=== PATIENT | male | born 1960 ===

== ENCOUNTER 2020-03-22 06:17 | Day surgery (SDC) | payer OTHER ==
[2020-03-18 09:27] LABS: Hematocrit 43.2 % (35.5-45.6); Hemoglobin 14.6 gm/dl (11.8-15.2); Mean Corpuscular HGB Conc 34 % (32-34); Mean Corpuscular Volume 94 fl (84-94); Platelet Count 225 K/mm3 (140-440); Red Blood Count 4.61 M/mm3 (3.65-5.03); Red Cell Distribution Width 12.7 % (13.2-15.2)
[2020-03-18 09:39] LABS: BUN/Creatinine Ratio 29; Blood Urea Nitrogen 23 mg/dL (9-20); Calcium 9.2 mg/dL (8.4-10.2); Hemolysis Index 13
--- NOTE | 2020-03-21 14:30 | Short Stay Summary ---
Short Stay Documentation Date of service: 03/22/20 - History H&P: obtained from office - Allergies and Medications Current Medications: Allergies Sulfa (Sulfonamide Antibiotics) Adverse Reaction (Intermediate, Verified 03/09/20 16:52) Rash causes rash & itching Home Medications Medication Instructions Recorded Confirmed Last Taken Type B12 Active 1 tab PO DAILY 03/09/20 03/09/20 Unknown History Calcium Acetate 1 tab PO DAILY 03/09/20 03/09/20 Unknown History Calcium Citrate/Vitamin D3 1 tab PO DAILY 03/09/20 03/09/20 Unknown History Magnesium 1 tab PO DAILY 03/09/20 03/09/20 Unknown History Active Medications Acetaminophen (Tylenol) 1,000 mg PO PREOP ONE Stop: 03/22/20 06:01 Celecoxib (Celebrex) 200 mg PO PREOP NR Stop: 03/22/20 23:59 Gabapentin (Gabapentin) 600 mg PO PREOP NR Stop: 03/22/20 23:59 Lactated Ringer's (Lactated Ringers) 1,000 mls @ 100 mls/hr IV DIRECT BRIANNA Stop: 03/22/20 23:59 Cefazolin Sodium 2 gm/ Sodium (Chloride) 100 mls @ 200 mls/hr IV PREOP ONE; Protocol Stop: 03/22/20 06:29 Magnesium Oxide (Mag-Ox) 400 mg PO PREOP BRIANNA Midazolam HCl (Versed) 2 mg IV PREOP NR Stop: 03/22/20 23:59 - Physical exam General appearance: no acute distress Integumentary: no rash HEENT: Atraumatic Lungs: Normal air movement Neurological: Normal speech - Brief post op/procedure progress note Date of procedure: 03/22/20 (dictation:[id number]) Pre-op diagnosis: recurrent RIH, new LIH Post-op diagnosis: same Procedure: Robotic assist Lap BIH repair IVF 1L EBL min Anesthesia: GETA Findings: bilateral direct IH. RIH contents adhered to inguinal floor and previous repair. Small R cord lipoma Surgeon: JOSE MARTIN DRAKE Accordion Tuner: BEN CARRILLO Estimated blood loss: minimal Pathology: none Condition: stable - Hospital course Hospital course: uneventful - Disposition Condition at discharge: Stable Disposition: DC-01 TO HOME OR SELFCARE Short Stay Discharge Plan Activity: advance as tolerated Diet: regular Wound: open to air, keep clean and dry Special Instructions: no heavy lifting Additional Instructions: Post Operative Instructions Activity: no heavy lifting for next 1 week. May shower tomorrow. Pat dry the wound or wounds. Keep incision sites clean and dry After surgery, start with a light diet. Consider starting with liquids. If you do well, you can advance to a regular diet as you feel comfortable. Apply an ice pack to the wound or wounds for 10-20 minutes at a time. Do this at least 4-5 times a day. You can do it more if he would like. Pain Medication Schedule for the first 2 days after surgery: Gabapentin 300mg twice a day Celebrex (celecoxib) 200mg twice a day Tylenol 500mg four times a day (every 6 hours) After the first 2 days, then take alternating doses of ibuprofen and Tylenol as needed for pain. Take 600 mg of ibuprofen every 6 hours as needed. Take 500 mg of Tylenol every 6 hours as needed. You should alternate these 2 medicines. Make sure you take the ibuprofen with food. It is very important that you use the prescription narcotic pain medicine (hydrocodone) only for very severe pain. Do not take the narcotic medicine before you try using all the medications listed above. We will call you in a couple of days to see how youre doing. If you have any questions or concerns, always feel free to call the clinic ([phone]) at any time. Follow up with: KAYLAH BLAIR MD [Primary Care Provider] - 7 Days JOSE MARTIN DRAKE MD [Staff Physician] - 14 Days Forms: Outpatient Surgery DC Inst. Prescriptions: Celecoxib [celeBREX] 200 mg PO BID #4 capsule Gabapentin 600 mg PO BID #8 capsule HYDROcodone/APAP 5-325 [[place] 5-325 mg TAB] 1 each PO Q6HR PRN #10 tablet PRN Reason: Pain , Severe (7-10)
[~2020-03-22 06:17] MED LIST: ACETAMINOPHEN 500 MG TAB PO NR; CELECOXIB 200 MG CAP PO NR; GABAPENTIN 300 MG CAP PO NR; LACTATED RINGERS 1,000 ML IV SCH; MAGNESIUM OXIDE 400 MG TAB PO SCH; MIDAZOLAM 2 MG/2 ML INJ IV NR; ceFAZolin/Water 2 GM/20 ML 2 GM/20 ML SYRINGE IV SCH
[2020-03-22] MEDS ORDERED: BACTERIOSTATIC SODIUM CHLORIDE 0.9% 30 ML VIAL INFILTRATI ONE (07:06)
[2020-03-22] MEDS ORDERED: HYDROmorphone 1 MG/1 ML INJ IV PRN (07:32)
--- NOTE | 2020-03-22 07:32 | Anesthesia Consultation ---
Anesthesia Consult and Med Hx Date of service: 03/22/20 - Airway Anesthetic Teeth Evaluation: Poor ROM Head & Neck: Adequate Mental/Hyoid Distance: Adequate Mallampati Class: Class II Intubation Access Assessment: Probably Good - Pulmonary Exam CTA: Yes - Cardiac Exam Cardiac Exam: RRR - Pre-Operative Health Status ASA Pre-Surgery Classification: ASA2 Proposed Anesthetic Plan: General - Pulmonary Hx Smoking: No Hx Respiratory Symptoms: No Hx Sleep Apnea: No (SNORES. SCORED HIGH ON PRESCREEN) - Cardiovascular System Hx Hypertension: No (reports occasional elevated BP but no meds or formal diagnosis) Hx Heart Attack/AMI: No Hx Percutaneous Transluminal Coronary Angioplasty (PTCA): No - Central Nervous System CVA: No - Gastrointestinal Hx Gastroesophageal Reflux Disease: No - Endocrine Hx Renal Disease: No Hx Liver Disease: No Hx Insulin Dependent Diabetes: No Hx Non-Insulin Dependent Diabetes: No Hx Thyroid Disease: No - Other Systems Hx Obesity: No - Additional Comments Anesthesia Medical History Comments: No hx anesthetic complications. Patient is Jehova's Witness and refuses blood products. 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
--- NOTE | 2020-03-22 07:32 | Anesthesia Day of Surgery ---
Anesthesia Day of Surgery - Day of Surgery Patient Examined: Yes Patient H&P Reviewed: Yes Patient is NPO: Yes
[2020-03-22] MEDS ORDERED: ePHEDrine SULFATE 50 MG/1 ML INJ ONE ×2 (07:44→09:34)
[2020-03-22] MEDS ORDERED: LIDOCAINE (1%) 10 MG/1 ML VIAL 20 ML MDV ONE (07:45)
[2020-03-22] MEDS ORDERED: BUPIVACAINE-EPINEPHRINE/PF 0.5%-1:200,000 (30 ML) VIAL INFILTRATI ONE ×2 (07:45→08:57)
[2020-03-22] MEDS ORDERED: propofoL 200 MG/20 ML VIAL IV ONE (07:55)
[2020-03-22] MEDS ORDERED: HYDROmorphone 1 MG/1 ML INJ ONE (07:56)
[2020-03-22] MEDS ORDERED: fentaNYL 100 MCG/2 ML INJ ONE (07:56)
[2020-03-22] MEDS ORDERED: GLYCOPYRROLATE 0.4 MG/2 ML INJ ONE (07:58)
[2020-03-22] MEDS ORDERED: NEOSTIGMINE 10MG/10 ML INJ MDV ONE (07:58)
[2020-03-22] MEDS ORDERED: LIDOCAINE MPF (2%) 20 MG/1 ML VIAL 5 ML ONE (07:58)
[2020-03-22] MEDS ORDERED: ONDANSETRON 4 MG/2 ML INJ ONE ×2 (07:58→12:07)
[2020-03-22] MEDS ORDERED: SUCCINYLCHOLINE CHLORIDE 200 MG/10 ML INJ MDV ONE (07:58)
[2020-03-22] MEDS ORDERED: PHENYLEPHRINE/NS 1,000 MCG/10 ML SYRINGE (OR USE) IV ONE ×2 (07:58→09:26)
[2020-03-22] MEDS ORDERED: ROCURONIUM 50 MG/5 ML INJ IV ONE (07:58)
[2020-03-22] MEDS ORDERED: WATER FOR IRRIG STERILE 1,500 ML BOTTLE IR ONE (08:58)
[2020-03-22] MEDS ORDERED: LIDOCAINE (1%) 10 MG/1 ML VIAL 20 ML MDV INFILTRATI ONE (08:58)
[2020-03-22] MEDS ORDERED: KETOROLAC 30 MG/1 ML INJ ONE (11:24)
[2020-03-22] MEDS ORDERED: HYDROcodone/ACETAMINOPHEN 5-325 MG TAB PO PRN (11:43)
[2020-03-22 12:01] VITALS: BP 135/76
[2020-03-22] MEDS ORDERED: ONDANSETRON 4 MG/2 ML INJ IV PRN (12:07)
--- NOTE | 2020-03-22 13:02 | Operative Report ---
PREOPERATIVE DIAGNOSES: 1. Recurrent right inguinal hernia. 2. New left inguinal hernia. POSTOPERATIVE DIAGNOSES: 1. Bilateral direct inguinal hernias. 2. Right cord lipoma. PROCEDURE: Robotic-assisted laparoscopic bilateral inguinal herniorrhaphy. ATTENDING PHYSICIAN: Navarro Brown MD RESERVATIONS SALES AGENT: Dr. Lizarraga. ANESTHESIA: General. ESTIMATED BLOOD LOSS: Minimal. FLUIDS: 1 liter. FINDINGS: The patient had moderate sized direct inguinal hernias. The left was greater than the right. A portion of the sigmoid colon was going into the hernia on the left. The right direct inguinal hernia was densely adhered to the underlying inguinal floor and a portion of the repair as we could see a portion of the mesh and sutures from the previous repairs. SPECIMENS: None. DRAINS: None. COMPLICATIONS: None. DISPOSITION: Stable, transferred to recovery room. INDICATIONS: This is a 59-year-old male who presented to the office with complaints of a recurrent right inguinal hernia that has been getting larger and causing him pain. The patient indeed was found to have bilateral inguinal hernias on exam. The patient is assessed to be in need for robotic bilateral inguinal herniorrhaphy. Procedure, risks, benefits were explained. Risks include but were not limited to infection, bleeding, pain, injury to surrounding structures, possible recurrence, possible need for further procedures in the future. The patient understood and consented. Consent was done with a card boxer. OPERATIVE NOTE: The patient was brought to the operating room and placed on the table in supine position. After adequate general anesthesia was established, the patient was prepped and draped in usual sterile fashion. Pressure points were padded. SCDs were in place. Antibiotics were given. Time-out was called. I began by placing a Veress needle in left upper quadrant at Neville's point. We entered the peritoneal cavity on the first attempt and we were able to insufflate. This was replaced with a 5 mm port using the Optiview technique. There was no injury to the underlying structures. Under direct vision, we evaluated both inguinal spaces. Under direct vision, we placed a 12 mm port at the umbilicus. Prior to placing the port, we placed the closing 2-0 PDS stitch using the Javier-Gabriela needle and then two 8 mm ports were placed laterally. The patient was flexed and then placed in a Trendelenburg position. Robot was docked. We had inserted gauze and two of the 3-0 V-Loc sutures initially. Once the robot was docked, I proceeded to the console. We began by creating our flap that was approximately 8 cm from the inguinal hernias. Once the midline portion was freed, I attached the two 3-0 V-Loc sutures as we are going to use that for our closure. We continued our dissection down to the inguinal hernias. On the left side, the hernia sac easily from the inguinal floor. We were able to get very nice exposure of the pubic symphasis, pubic tubercles and the cord structures on the left hand side. This proceeded very smoothly. On the right hand side, the hernia was densely adhered to the previous repairs and inguinal floor. Extra time was required. There were also some adhesions to the cord structures on the right side. We slowly progressed to this area. We ended up with a very clean dissection. No injury to the underlying structures. Everything looked very good. We had a complete reduction of the hernia on the right side. The cord lipoma was identified. This was dissected back. In looking at the internal ring, it appeared as though his repair there was intact. The cord lipoma was just sitting underneath the repair. Once both sides were dissected, a sufficient amount proximally, 2 large 3DMax meshes were placed, 1 in the left, 1 on the right. They appeared to sit very nicely. They were secured to the pubic tubercles with 2-0 Vicryl sutures and then laterally a stitch was placed to hold it in place. The two meshes were then connected with a 2-0 Vicryl suture. Everything looked very good. We had very good hemostasis. Mesh laid very well. Please note that we did place Angiocath catheters underneath the mesh to help evacuate the air at the end of the case. Once we felt comfortable, everything looked very good. The mesh laid very well. We had a very nice proximal dissection of the peritoneum. We then proceeded to close the flap using the 3-0 V-Loc sutures we had placed previously, in a running fashion I closed from the center to both sides. The flap closed very nicely. We did have a 1 cm hole on the right side of the peritoneum where all the dense adhesions were. I closed this hole with a leftover 2-0 Vicryl suture that we had, it closed very nicely. At this point, we then converted back to laparoscopic case. All the needles were removed. Counts were correct. Sponge was removed. We removed the 12 mm port and used the stitch we had previously placed to close the defect. It closed very nicely and then we desufflated under direct vision. We compressed the inguinal areas to try to get out as much air as possible and then eventually I removed the Angiocath. Additional local was injected into all the incisions. Skin was closed with 4-0 Monocryl subcuticular stitches. Skin was cleaned and dried. Dermabond was placed. The patient tolerated the procedure well. There were no complications. All counts were correct at the end of the case. JOB# [id number] PRASAD/JUDE
--- NOTE | 2020-03-22 13:02 | Post Anesthesia Evaluation ---
- Post Anesthesia Evaluation Patient Participated: Yes Airway Patent: Yes Stable Respiratory Function: Yes Nausea/Vomiting: No Temp > 96.8F: Yes Pain Manageable: Yes Adequeate Hydration: Yes Anesthesia Complications: No
== END 2020-03-22 13:05 | disposition home or self-care (01) ==
LOC: OR 06:17
PROVIDERS: ATTEND Surgery
DX: K40.91 Unilateral inguinal hernia, without obstruction or gangrene, recurrent (principal); K40.90 Unilateral inguinal hernia, without obstruction or gangrene, not specified as recurrent; D17.6 Benign lipomatous neoplasm of spermatic cord; K21.9 Gastro-esophageal reflux disease without esophagitis; Z11.59 Encounter for screening for other viral diseases; Z88.2 Allergy status to sulfonamides; Z79.899 Other long term (current) drug therapy; Z98.890 Other specified postprocedural states
CPT/HCPCS: 36415; 49650; 49651; 80048; 85027; C1781; J0330; J0690; J1170; J1885; J2250; J2370; J2405; J2704; J2710; J3010; J7120; S2900; U0003